=== PATIENT | male | born 1945 | race Caucasian/White ===

== ENCOUNTER 2019-11-08 15:21 | Emergency (ER) | payer MEDICARE, OTHER ==
[~2019-11-08] VITALS: Ht 167.6 cm; Wt 74.8 kg
[2019-11-08] MEDS ORDERED: METOPROLOL TARTRATE INJ 1 MG/ML VIAL ONE (15:56)
[2019-11-08] MEDS ORDERED: METOPROLOL TARTRATE INJ 1 MG/ML VIAL IV ONE (16:00)
--- NOTE | 2019-11-08 16:28 | Diagnostic Imaging Report ---
EXAM: CXR 2 VIEW - [facility] DATE: 11/08/2019 12:00 AM INDICATION: Hypertension COMPARISON: None FINDINGS: The trachea is midline. The lungs are symmetrically expanded without evidence for large focal consolidation, pneumothorax, or significant pleural effusion. The cardiomediastinal silhouette and pulmonary vasculature are within normal limits. No acute osseous abnormality is identified. The surrounding soft tissues are unremarkable. IMPRESSION: No acute cardiopulmonary process identified. Signed by: Dr. Roderick Hidalgo MD on 11/08/2019 4:25 PM
[2019-11-08] MEDS ORDERED: CLONIDINE HCL 0.1 MG TAB ONE (16:59)
[2019-11-08] MEDS ORDERED: CLONIDINE HCL 0.2 MG TAB PO ONE (17:00)
[2019-11-08 17:30] VITALS: BP 185/93
[2019-11-08] MEDS ORDERED: AMLODIPINE-BEN1 EAC5 PO (17:36)
[2019-11-08] MEDS ORDERED: PRAVASTATIN SOD20 MG PO (17:37)
--- OUTSIDE RECORDS SUMMARY | 2019-11-11 13:39 | XMS REPORT ---
Author Author [facility] Address Unknown Phone Unavailable Care Team Providers Care [employer] Name Role Phone oJse J DELGADO Unavailable Unavailable Problems This patient has no known problems. Allergies, Adverse Reactions, Alerts This patient has no known allergies or adverse reactions. Medications This patient has no known medications. Results Test Description Test Time Test Comments Text Results Atomic Results Result Comments [facility] 2019-11-08 16:24:00 [place] [address] Patient Name: MAXINE PEREA MR #: [id number] : 1945 Age/Sex: 73/M Req #: [id number] [facility] Physician: Ordered by: JULES DELGADO MD Report #: [id number] Location: [facility] Room/Bed: Procedure: [id number] [facility]/CXR 2 VIEW - [facility] Exam Date: 11/08/19 Exam Time: 1616 REPORT STATUS: Signed EXAM: CXR 2 VIEW - [facility] DATE: 11/08/2019 12:00 AM INDICATION: Hypertension COMPARISON: None FINDINGS: The trachea is midline. The lungs are symmetrically expanded without evidence for large focal consolidation, pneumothorax, or significant pleural effusion. The cardiomediastinal silhouette and pulmonary vasculature are within normal limits. No acute osseous abnormality is identified. The surrounding soft tissues are unremarkable. IMPRESSION: No acute cardiopulmonary process identified. Signed by: Dr. Roderick Hidalgo MD on 11/08/2019 4:25 PM Dictated By: RODERICK HIDALGO MD [id number] Transcribed By: SHEREEN on 11/08/19 5710 COPY TO: JULES DELGADO MD
== END 2019-11-08 17:48 | disposition home or self-care (01) ==
LOC: FSED 15:21
DX: Z76.0 Encounter for issue of repeat prescription (principal); I10 Essential (primary) hypertension; E78.5 Hyperlipidemia, unspecified
CPT/HCPCS: 71046; 80053; 81003; 82553; 84484; 85025; 93005; 99284